=== PATIENT | female | born 1970 | race Caucasian/White ===

== ENCOUNTER 2016-09-13 21:24 | Emergency (ER) | payer BC ==
[~2016-09-13] VITALS: Ht 175.3 cm; Wt 73.3 kg
[~2016-09-13 21:24] MED LIST: DAILY VALUE1 EACH PO; DELTASONE20 M1 PO; DORYX200 MG PO; DOXYCYCLINE HY100 MG PO; NAPROSYN500 MG PO; NEXIUM40 MG PO; NORCO 5/3251 TABLET PO; ZYRTEC10 M3 PO
[2016-09-13] MEDS ORDERED: KEFLEX500 MG PO (22:45)
[2016-09-13 22:55] VITALS: BP 115/78
== END 2016-09-13 22:55 | disposition home or self-care (01) ==
LOC: EME 21:24 → EXP 21:24
DX: S40.862A Insect bite (nonvenomous) of left upper arm, initial encounter (principal); Z86.19 Personal history of other infectious and parasitic diseases; Z88.2 Allergy status to sulfonamides; W57.XXXA Bitten or stung by nonvenomous insect and other nonvenomous arthropods, initial encounter
CPT/HCPCS: 99281; 99283